=== PATIENT | female | born 1960 | race Caucasian/White ===

== ENCOUNTER 2022-04-25 15:40 | Emergency (ER) | payer OTHER ==
[~2022-04-25] VITALS: Ht 165.1 cm; Wt 97.5 kg
== END 2022-04-25 17:33 | disposition home or self-care (01) ==
LOC: ER 15:40
DX: S43.402A Unspecified sprain of left shoulder joint, initial encounter (principal); S73.102A Unspecified sprain of left hip, initial encounter; S83.92XA Sprain of unspecified site of left knee, initial encounter; V89.2XXA Person injured in unspecified motor-vehicle accident, traffic, initial encounter; Z88.2 Allergy status to sulfonamides
CPT/HCPCS: 73030; 73502; 73562-LT; 99284-25